=== PATIENT | female | born 1940 | race Caucasian/White ===

== ENCOUNTER → 2018-01-05 17:50 | Outpatient (CLI) | payer MEDICARE, BC | END | disposition home or self-care (01) | LOC: D.MAMMO 15:15 | DX: Z12.31 Encounter for screening mammogram for malignant neoplasm of breast (principal) ==

== ENCOUNTER 2020-05-13 11:15 | Outpatient (CLI) | payer BC | END 2020-05-13 23:59 | disposition home or self-care (01) | LOC: D.MAMMO 11:15 | PROVIDERS: ATTEND Family Medicine | DX: Z12.31 Encounter for screening mammogram for malignant neoplasm of breast (principal) ==